=== PATIENT | female | born 1955 | race American Indian/Alaskan Native ===

== ENCOUNTER 2018-04-22 16:19 | Emergency (ER) | payer OTHER ==
--- NOTE | 2018-04-22 17:31 | EDM.PDOC ---
Scribed by Karin Oswald 04/22/18 1013 for Dave Carpenter MD ED HPI GENERAL MEDICAL PROBLEM - General Chief Complaint: Lower Extremity Injury/Pain Stated Complaint: [id number] BROKE LEFT LEG PLAYING BASKETBALL Time Seen by Provider: 04/22/18 16:32 Source of Information: Reports: Patient, RN, RN Notes Reviewed History Limitations: Reports: No Limitations - History of Present Illness INITIAL COMMENTS - FREE TEXT/NARRATIVE: Patient presents to ER with complaint of left lateral foot pain after a popping noise was heard when she was playing basketball with some children. She has a history of broken left fifth metatarsal last year. Denies any other injury. Pain is worse with weight bearing. Onset: Today Duration: Getting Worse Location: Reports: Lower Extremity, Left Quality: Reports: Ache Severity: Severe Improves with: Reports: None Worsens with: Reports: None Associated Symptoms: Reports: No Other Symptoms Left Ankle Pain Score (Numeric/FACES): 8 - Related Data Allergies Allergy/AdvReac Type Severity Reaction Status Date / Time No Known Allergies Allergy Verified 04/22/18 16:35 Home Meds: Home Meds Alendronate [Fosamax] 35 mg PO WEEKLY 04/22/18 [History] Gabapentin [Neurontin] 100 - 200 mg PO BID PRN 04/22/18 [History] Omeprazole 20 mg PO DAILY 04/22/18 [History] Raloxifene [Evista] 60 mg PO DAILY 04/22/18 [History] Review of Systems - Review of Systems Review Of Systems: ROS reveals no pertinent complaints other than HPI. ED EXAM, GENERAL - Physical Exam Exam: See Below Exam Limited By: No Limitations General Appearance: Alert, WD/WN Head: Atraumatic, Normocephalic Neck: Normal Inspection Respiratory/Chest: No Respiratory Distress Cardiovascular: Normal Peripheral Pulses Extremities: No Pedal Edema, Normal Capillary Refill, Limited Range of Motion ( left ankle and fifth toe), Other (left lateral foot tenderness overlying the fifth metatarsal with slight swelling.No visible bruising. Skin is intact.). No : Joint Swelling, Leg Pain Neurological: Alert, Oriented, Normal Cognition, No Motor/Sensory Deficits Psychiatric: Normal Mood Skin Exam: Warm, Dry, Intact, Normal Color, No Rash Course - Vital Signs Last Recorded V/S: Last Vital Signs Temp 36.6 C 04/22/18 16:25 Pulse 87 04/22/18 16:25 Resp 18 04/22/18 16:25 BP 156/95 H 04/22/18 16:25 Pulse Ox 96 04/22/18 16:25 - Orders/Labs/Meds Orders: Active Orders 24 hr Category Date Time Status Foot Comp Min 3V Lt [CR] Urgent Exams 04/22/18 16:39 Taken DME for Discharge [COMM] Routine Oth 04/22/18 17:28 Ordered DME for Discharge [COMM] Routine Oth 04/22/18 17:29 Ordered - Radiology Interpretation Free Text/Narrative:: X-ray left foot: 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 See rad report. Departure - Departure Time of Disposition: 17:28 Disposition: Home, Self-Care 01 Condition: Good Clinical Impression: Closed fracture of fifth metatarsal bone Qualifiers: Encounter type: initial encounter Fracture alignment: nondisplaced Laterality: left Qualified Code(s): S92.355A - Nondisplaced fracture of fifth metatarsal bone, left foot, initial encounter for closed fracture - Discharge Information Instructions: Metatarsal Fracture Forms: ED Department Discharge Additional Instructions: RX: [id number]/325mg. *DO NOT DRIVE WHILE UNDER THE INFLUENCE OF THIS MEDICATION Wear splint boot and use crutches to be nonweight bearing on the left foot. Follow up with your orthopedic surgeon when you return home to [place]. - My Orders Last 24 Hours: My Active Orders 04/22/18 16:39 Foot Comp Min 3V Lt [CR] Urgent 04/22/18 17:28 DME for Discharge [COMM] Routine 04/22/18 17:29 DME for Discharge [COMM] Routine - Assessment/Plan Last 24 Hours: My Active Orders 04/22/18 16:39 Foot Comp Min 3V Lt [CR] Urgent 04/22/18 17:28 DME for Discharge [COMM] Routine 04/22/18 17:29 DME for Discharge [COMM] Routine I have read and agree with the documentation that has been completed regarding this visit. By signing this record, I attest that the documentation was completed in my physical presence and is an accurate record of the encounter.
== END 2018-04-22 17:45 | disposition home or self-care (01) ==
LOC: DL.ED 16:19
DX: S92.355A Nondisplaced fracture of fifth metatarsal bone, left foot, initial encounter for closed fracture (principal); Z79.899 Other long term (current) drug therapy; X50.9XXA Other and unspecified overexertion or strenuous movements or postures, initial encounter; Y93.67 Activity, basketball
CPT/HCPCS: 73630-LT; 99283